=== PATIENT | female | born 1955 | race Caucasian/White ===

== ENCOUNTER → 2017-06-21 15:48 | Outpatient (CLI) | payer BC, SELFPAY ==
--- NOTE | 2017-06-21 15:51 | HPBI_ITS ---
MAMMOGRAPHY - BILATERAL SCREENING REASON FOR EXAM: Female, 61 years old. Routine annual screening examination. PERTINENT HISTORY: Non-contributory. TECHNIQUE: Digital bilateral breast trung (3D mammographic acquisition) in the CC and MLO projections. 2-D mediolateral oblique (MLO) and craniocaudad (CC) views of both breasts were obtained. CAD: Full Field Digital Mammography with Computer Added Detection was performed. COMPARISON: Comparison is made with prior study dated March 24, 2016 and December 27, 2012. FINDINGS: Breast Composition: There are scattered areas of fibroglandular density. There are no dominant masses or suspicious calcifications. Stable benign-appearing bilateral axillary lymph nodes. No other significant abnormalities are identified. There has been no significant change since the prior study. HPBI/SCREENING MAMM (CAD), BILAT IMPRESSION: Stable bilateral screening mammogram. Yearly follow-up mammogram recommended. (A) ASSESSMENT CATEGORY: BIRADS Category 2: Benign. A letter regarding these results will be sent to the patient by the facility within 30 days. Approximately 10% of breast cancers are not detected by mammography. A normal mammogram should not delay biopsy of a clinically suspicious abnormality. [id number] Electronically Signed: Steve Valenzuela MD at 8:59 EST Tel [phone], Service support ,
== END ==
PROVIDERS: Family Provider Family Medicine; PCP Family Medicine; Visit Provider Family Medicine
DX: Z12.31 Encounter for screening mammogram for malignant neoplasm of breast (principal)
CPT/HCPCS: 77063; 77067

== ENCOUNTER → 2017-08-20 10:35 | Outpatient (CLI) | payer BC, SELFPAY ==
[2017-08-20 12:21] LABS: Basophil# 0.02 X10^3/uL; Basophil% 0.3 % (0-1); Eosinophil# 0.09 X10^3/uL; Eosinophils% 1.5 % (0-5); Hematocrit 41.1 % (37-47); Hemoglobin 13.3 g/dl (12.0-15.0); Lymphocyte % 25.1 % (19-41); Mean Corp Hgb Conc 32.4 g/gl (32-36); Mean Corpuscular Hgb 28.6 pg (27.0-32.0); Mean Corpuscular Volume 88.4 fL (81-99); Mean Platelet Vol. 10.8 fl (6.2-12.0); Monocyte# 0.39 X10^3/uL; Monocyte% 6.5 % (0-10); Neutrophil # 3.97 X10^3/uL (2.7-7.7); Neutrophil % 66.4 % (47-70); Platelet Count 228 K/mm3 (150-450); RBC Distribution Width CV 13.2 % (11.6-14.6); RBC Distribution Width SD 42.6 fl (35.1-43.9); Red Blood Count 4.65 M/mm3 (4.2-5.4)
[2017-08-20 12:29] LABS: POSITIVE COUNT NO; POSITIVE DIFFERENTIAL NO; POSITIVE MORPHOLOGY NO
[2017-08-20 12:32] LABS: Hemoglobin A1c 9.7 % (4.2-6.3)
[2017-08-20 12:42] LABS: AST(SGOT) 13 U/L (15-37); Alanine Aminotransfer ALT/SGPT 23 U/L (13-56); Albumin, Serum 3.6 g/dL (3.2-5.0); Alkaline Phosphatase 93 U/L (45-117); Anion Gap 9 (5-15); BUN 12 mg/dL (7-18); BUN/Creat Ratio 12.6 RATIO (10-20); Calcium,Total 8.7 mg/dL (8.5-10.1); Chloride 105 mmol/L (98-107); Cholesterol 141 mg/dL (200); Creatinine, Serum 0.95 mg/dL (0.55-1.02); EST Glomerular Filtration Rate 63 mL/min (>60); Est Glom Filt Rate - Afr Amer 77 mL/min (>60); Globulin 3.7 g/dL (2.2-4.2); Glucose 207 mg/dL (74-106); High Density Lipoprotein 58 mg/dL; Potassium 3.7 mmol/L (3.5-5.1); Protein, Total 7.3 g/dL (6.4-8.2); Sodium Level 137 mmol/L (136-145); Thyroid Stim Hormone (TSH) 6.73 uIU/mL (0.358-3.74); Triglycerides 135 mg/dL; Very Low Density Lipoprotein 27 mg/dL (5-40)
[2017-08-20 12:45] LABS: Microalbumin,Random Urine 19.5 mg/L (NO RANGE EST.)
== END ==
PROVIDERS: Family Provider Family Medicine; PCP Family Medicine; Visit Provider Family Medicine
DX: I10 Essential (primary) hypertension (principal); E11.9 Type 2 diabetes mellitus without complications; E78.5 Hyperlipidemia, unspecified; E03.9 Hypothyroidism, unspecified; E66.9 Obesity, unspecified
CPT/HCPCS: 36415; 80053; 80061; 82043; 82570; 83036; 84443; 85025

== ENCOUNTER → 2018-06-04 10:26 | Outpatient (CLI) | payer BC, SELFPAY ==
[2018-06-04 12:10] LABS: Absolute Lymphocyte Count 1.72 X10^3/ul (0.83-4.51); Absolute Neutrophil Count 3.2 X10^3/uL (2.0-7.7); Basophil# 0.03 X10^3/uL; Basophil% 0.6 % (0-1); Eosinophil# 0.14 X10^3/uL; Eosinophils% 2.6 % (0-5); Hematocrit 38.5 % (37-47); Hemoglobin 12.1 g/dl (12.0-15.0); Lymphocyte # 1.72 X10^3/ul (4.0); Lymphocyte % 31.6 % (19-41); Mean Corp Hgb Conc 31.4 g/gl (32-36); Mean Corpuscular Hgb 27.5 pg (27.0-32.0); Mean Corpuscular Volume 87.5 fL (81-99); Mean Platelet Vol. 10.5 fl (6.2-12.0); Monocyte# 0.37 X10^3/uL; Monocyte% 6.8 % (0-10); Neutrophil # 3.18 X10^3/uL (2.7-7.7); Neutrophil % 58.2 % (47-70); Platelet Count 237 K/mm3 (150-450); RBC Distribution Width CV 13.7 % (11.6-14.6); RBC Distribution Width SD 44.4 fl (35.1-43.9); White Blood Count 5.5 K/mm3 (4.4-11.0)
[2018-06-04 12:14] LABS: POSITIVE COUNT NO; POSITIVE DIFFERENTIAL NO; POSITIVE MORPHOLOGY NO
[2018-06-04 12:24] LABS: Microalbumin,Random Urine 31.2 mg/L (NO RANGE EST.); Microalbumin:Creatinine Ratio 23.6 mg/g CRE (<30 mg/g CRE)
[2018-06-04 13:16] LABS: ALB/GLOB Ratio 0.9 RATIO (0.9-2.4); AST(SGOT) 11 U/L (15-37); Alanine Aminotransfer ALT/SGPT 28 U/L (13-56); Albumin, Serum 3.3 g/dL (3.2-5.0); Alkaline Phosphatase 76 U/L (45-117); Anion Gap 8 (5-15); BUN 13 mg/dL (7-18); BUN/Creat Ratio 19.8 RATIO (10-20); Calcium,Total 8.4 mg/dL (8.5-10.1); Chloride 109 mmol/L (98-107); Cholesterol 155 mg/dL (200); Creatinine, Serum 0.66 mg/dL (0.55-1.02); EST Glomerular Filtration Rate 97 mL/min (>60); Est Glom Filt Rate - Afr Amer 117 mL/min (>60); Globulin 3.6 g/dL (2.2-4.2); Glucose 152 mg/dL (74-106); High Density Lipoprotein 68 mg/dL; Potassium 3.9 mmol/L (3.5-5.1); Protein, Total 6.9 g/dL (6.4-8.2); Sodium Level 144 mmol/L (136-145); T4 Free Direct 1.03 ng/dL (0.76-1.46); Thyroid Stim Hormone (TSH) 0.73 uIU/mL (0.358-3.74); Triglycerides 121 mg/dL; Very Low Density Lipoprotein 24 mg/dL (5-40)
== END ==
LOC: LAB.FUTURE 04-14 12:08 → BFHLAB 09-11 10:50
PROVIDERS: Family Provider Family Medicine; PCP Family Medicine; Visit Provider Family Medicine
DX: Z00.00 Encounter for general adult medical examination without abnormal findings (principal); E11.9 Type 2 diabetes mellitus without complications; I10 Essential (primary) hypertension; E78.5 Hyperlipidemia, unspecified; E03.9 Hypothyroidism, unspecified
CPT/HCPCS: 36415; 80053; 80061; 82043; 82570; 83036; 84439; 84443; 85025

== ENCOUNTER → 2018-06-25 14:55 | Outpatient (CLI) | payer BC, SELFPAY ==
--- NOTE | 2018-06-25 15:02 | CT_ITS ---
STUDY: CT CHEST/THORAX WITHOUT CONTRAST REASON FOR EXAM: Female, 62 years old. Lung screening. 40 pack-year smoking history quit one year ago. RADIATION DOSAGE (If Supplied By Facility): CTDIvol = ( 4.02 ) mGy, DLP = ( 139.44 ) mGycm TECHNIQUE: Transaxial imaging was performed utilizing low dose technique without the administration of intravenous contrast material. Multiplanar coronal and sagittal images were reformatted. Individualized dose optimization techniques were used for this CT. COMPARISON: None. FINDINGS: There is minor curvilinear scarring in the inferolateral lingula of the left upper lobe. No demonstrated pulmonary mass. There is no demonstrated pleural abnormality. Normal heart and pericardium. There are a few upper normal size to borderline enlarged pretracheal/precarinal lymph nodes. Normal hilar regions. Normal unenhanced pulmonary arteries. Normal aorta arch and descending thoracic aorta. There are multi-level degenerative changes of the thoracic spine. There is no demonstrated abnormality of the visualized upper abdomen. CT/Chest without Contrast IMPRESSION: 1. Focal scarring in the inferolateral lingula of left upper lobe. 2. There are a few upper normal-sized to borderline enlarged pretracheal/precarinal lymph nodes. Electronically Signed: Gregory Perry, at 17:36 EST , Service support ,
== END ==
PROVIDERS: Family Provider Family Medicine; PCP Family Medicine; Referring Provider Family Medicine; Visit Provider Family Medicine
DX: Z12.2 Encounter for screening for malignant neoplasm of respiratory organs (principal); Z87.891 Personal history of nicotine dependence
CPT/HCPCS: 71250

== ENCOUNTER → 2018-07-18 16:54 | Outpatient (CLI) | payer BC, SELFPAY ==
--- NOTE | 2018-07-18 16:56 | BI_ITS ---
MAMMOGRAPHY - BILATERAL SCREENING 3-D CHRISTIANA SYNTHESIS REASON FOR EXAM: Female, 62 years old. Bilateral Screening 3-D tomosynthesis PERTINENT HISTORY: No significant family history. TECHNIQUE: 2-D mammograms and 3-D Christiana synthesis of the breast (s) were performed. CAD was performed. COMPARISON: June 21, 2017, March 24, 2016 FINDINGS: The breast composition is almost entirely fat. Scattered benign calcifications are stable. There are stable normal-appearing lymph nodes in both axillae. No dense spiculated masses or suspicious microcalcifications are identified. No architectural distortion is identified. There is no skin thickening or retraction. There has been no significant change since the prior study. BI/SCREENING MAMM (CAD), BILAT IMPRESSION: No mammographic signs of malignancy. Routine yearly mammograms recommended. ASSESSMENT CATEGORY: BIRADS Category 2: Benign. A letter regarding these results will be sent to the patient by the facility within 30 days. FOLLOW UP RECOMMENDATION: Yearly follow up mammogram recommended. (A) Approximately 10% of breast cancers are not detected by mammography. A normal mammogram should not delay biopsy of a clinically suspicious abnormality. Electronically Signed: Jg Fowler MD at 17:04 EDT , Service support ,
== END ==
PROVIDERS: Family Provider Family Medicine; PCP Family Medicine; Referring Provider Family Medicine; Visit Provider Family Medicine
DX: Z12.31 Encounter for screening mammogram for malignant neoplasm of breast (principal)
CPT/HCPCS: 77063; 77067

== ENCOUNTER → 2019-09-08 15:28 | Outpatient (CLI) | payer BC, SELFPAY ==
[2019-09-08 16:40] LABS: Absolute Lymphocyte Count 1.39 X10^3/uL (0.83-4.51); Absolute Neutrophil Count 4.5 X10^3/uL (2.0-7.7); Basophil# 0.05 X10^3/uL; Basophil% 0.8 % (0-1); Eosinophil# 0.13 X10^3/uL; Hematocrit 39.9 % (37-47); Hemoglobin 12.6 g/dL (12.0-15.0); Lymphocyte # 1.39 X10^3/ul (4.0); Lymphocyte % 21.5 % (19-41); Mean Corp Hgb Conc 31.6 g/dL (32-36); Mean Corpuscular Hgb 27.5 pg (27.0-32.0); Mean Corpuscular Volume 86.9 fL (81-99); Mean Platelet Vol. 10.6 fl (6.2-12.0); Monocyte# 0.41 X10^3/uL; Monocyte% 6.3 % (0-10); NRBC Flagged by Analyzer 0 % (0-5); Neutrophil # 4.48 X10^3/uL (2.7-7.7); Neutrophil % 69.2 % (47-70); Platelet Count 254 K/mm3 (150-450); RBC Distribution Width CV 13.2 % (11.6-14.6); RBC Distribution Width SD 41.1 fl (35.1-43.9); Red Blood Count 4.59 M/mm3 (4.2-5.4); White Blood Count 6.5 K/mm3 (4.4-11.0)
[2019-09-08 17:03] LABS: ALB/GLOB Ratio 0.9 RATIO (0.9-2.4); AST(SGOT) 17 U/L (15-37); Alanine Aminotransfer ALT/SGPT 26 U/L (13-56); Albumin, Serum 3.5 g/dL (3.2-5.0); Alkaline Phosphatase 80 U/L (45-117); Anion Gap 6 (5-15); BUN 15 mg/dL (7-18); BUN/Creat Ratio 20.4 RATIO (10-20); Calcium,Total 8.3 mg/dL (8.5-10.1); Chloride 111 mmol/L (98-107); Cholesterol 171 mg/dL (200); Creatinine, Serum 0.74 mg/dL (0.55-1.02); EST Glomerular Filtration Rate 85 mL/min (>60); Est Glom Filt Rate - Afr Amer 102 mL/min (>60); Globulin 3.7 g/dL (2.2-4.2); Glucose 116 mg/dL (74-106); High Density Lipoprotein 75 mg/dL; Protein, Total 7.2 g/dL (6.4-8.2); Sodium Level 140 mmol/L (136-145); T4 Free Direct 1.21 ng/dL (0.76-1.46); Thyroid Stim Hormone (TSH) 0.13 uIU/mL (0.358-3.74); Triglycerides 148 mg/dL; Very Low Density Lipoprotein 30 mg/dL (5-40)
[2019-09-08 17:16] LABS: Hemoglobin A1c 7.2 % (4.2-6.3)
[2019-09-08 17:17] LABS: Microalbumin:Creatinine Ratio 14.9 mg/g CRE (<30 mg/g CRE)
[2019-09-11 03:39] LABS: SAR-COV-2 IGG ANTIBODY Negative (Negative); SAR-COV-2 IGM ANTIBODY Negative (Negative)
== END ==
PROVIDERS: Family Provider Family Medicine; PCP Family Medicine; Visit Provider Family Medicine
DX: Z00.00 Encounter for general adult medical examination without abnormal findings (principal); E11.9 Type 2 diabetes mellitus without complications; E03.9 Hypothyroidism, unspecified
CPT/HCPCS: 36415; 80053; 80061; 82043; 82570; 83036; 84439; 84443; 85025; 86769

== ENCOUNTER → 2020-03-05 14:09 | Outpatient (CLI) | payer BC, SELFPAY ==
[2020-03-05 17:14] LABS: Hemoglobin A1c 6.7 % (3.8-5.6)
[2020-03-05 18:11] LABS: Cholesterol 166 mg/dL (200); High Density Lipoprotein 81 mg/dL; Thyroid Stim Hormone (TSH) 1.14 uIU/mL (0.358-3.74); Triglycerides 128 mg/dL; Very Low Density Lipoprotein 26 mg/dL (5-40)
[2020-03-06 10:44] LABS: Hepatitis C Antibody Non-Reactive (Nonreactive)
== END ==
PROVIDERS: PCP Family Medicine; Visit Provider Family Medicine
DX: E11.9 Type 2 diabetes mellitus without complications (principal); E78.5 Hyperlipidemia, unspecified; E03.9 Hypothyroidism, unspecified; R53.83 Other fatigue
CPT/HCPCS: 36415; 80061; 83036; 84439; 84443; 86803

== ENCOUNTER → 2020-04-27 17:30 | Outpatient (CLI) | payer BC, SELFPAY ==
--- NOTE | 2020-04-27 16:45 | BI_ITS ---
MAMMOGRAPHY - BILATERAL SCREENING REASON FOR EXAM: Female, 64 years old. Routine annual screening examination. PERTINENT HISTORY: Non-contributory. TECHNIQUE: Digital bilateral breast christiana (3D mammographic acquisition) in the CC and MLO projections. 2-D mediolateral oblique (MLO) and craniocaudad (CC) views of both breasts were obtained. CAD: Full Field Digital Mammography with Computer Added Detection was performed. COMPARISON: 07/18/2018 and 06/21/2017 FINDINGS: Breast Composition: There are scattered areas of fibroglandular density. There are no dominant masses or suspicious calcifications. No other significant abnormalities are identified. BI/SCREEN MAMM (CAD) W/CHRISTIANA BILAT IMPRESSION: Stable bilateral screening mammogram. Yearly follow-up mammogram recommended. (A) ASSESSMENT CATEGORY: BIRADS Category 2: Benign. A letter regarding these results will be sent to the patient by the facility within 30 days. Approximately 10% of breast cancers are not detected by mammography. A normal mammogram should not delay biopsy of a clinically suspicious abnormality. [id number] Electronically Signed: Ragini Taylor, at 15:32 EST Tel , Service support ,
== END ==
PROVIDERS: PCP Family Medicine
DX: Z12.31 Encounter for screening mammogram for malignant neoplasm of breast (principal)
CPT/HCPCS: 77063; 77067

== ENCOUNTER → 2021-12-09 | Outpatient (CLI) | payer BC, SELFPAY ==
--- NOTE | 2021-12-09 07:46 | BI_ITS ---
MAMMOGRAPHY - BILATERAL SCREENING REASON FOR EXAM: Female, 65 years old. Routine annual screening examination. PERTINENT HISTORY: Non-contributory. TECHNIQUE: Digital bilateral breast christiana (3D mammographic acquisition) in the CC and MLO projections. 2-D mediolateral oblique (MLO) and craniocaudad (CC) views of both breasts were obtained. CAD: Full Field Digital Mammography with Computer Added Detection was performed. COMPARISON: Screening mammogram from 04/27/2020, 07/18/2018, 06/21/2017. FINDINGS: Breast Composition: There are scattered areas of fibroglandular density. There are no dominant masses or suspicious calcifications. Stable benign-appearing axillary lymph nodes. No other significant abnormalities are identified. There has been no significant change since the prior study. BI/SCRN MAMM (CAD)W/CHRISTIANA BILAT IMPRESSION: Stable bilateral screening mammogram. Yearly follow-up mammogram recommended. (A) ASSESSMENT CATEGORY: BIRADS Category 2: Benign. A letter regarding these results will be sent to the patient by the facility within 30 days. Approximately 10% of breast cancers are not detected by mammography. A normal mammogram should not delay biopsy of a clinically suspicious abnormality. Electronically Signed: Randal Mccain, at 10:58 EDT ,
== END | disposition home or self-care (01) ==
LOC: OPBI 07:43
PROVIDERS: PCP Family Medicine; Referring Provider Family Medicine; Visit Provider Family Medicine
DX: Z12.31 Encounter for screening mammogram for malignant neoplasm of breast (principal)
CPT/HCPCS: 77063; 77067

== ENCOUNTER → 2022-01-24 | Outpatient (CLI) | payer BC, SELFPAY ==
--- NOTE | 2022-01-24 11:21 | RAD_ITS ---
STUDY: X-RAY - LEFT KNEE REASON FOR EXAM: Female, 66 years old. Left knee pain. TECHNIQUE: 5 view(s) of the knee. COMPARISON: None. FINDINGS: Marked osteopenia. Superior patellar spur. Marked tricompartmental arthrosis most prominent in the medial and patellofemoral compartments. Ossific fragments projected posteriorly compatible with intra-articular osteochondral bodies. The soft tissue structures are unremarkable. RAD/Knee 4 or More Views IMPRESSION: Osteopenia with patellar spur and tricompartmental arthrosis as described. No acute abnormality, chondrocalcinosis or erosive changes. Electronically Signed: Jg Fowler, at 13:15 EDT ,
--- NOTE | 2022-01-24 11:21 | RAD_ITS ---
STUDY: X-RAY - RIGHT KNEE REASON FOR EXAM: Female, 66 years old. Bilateral knee pain. TECHNIQUE: 5 view(s) of the knee. COMPARISON: None. FINDINGS: Osteopenia. Superior patellar spur. Moderate to marked tricompartmental arthrosis, most evident in the medial and patellofemoral compartments, with osteophyte formation. Small joint effusion. RAD/Knee 4 or More Views IMPRESSION: Osteopenia, tricompartmental arthrosis, as described, and small joint effusion. Electronically Signed: Jg Fowler, at 14:05 EDT ,
== END | disposition home or self-care (01) ==
LOC: RAD 11:17
PROVIDERS: PCP Family Medicine; Referring Provider Family Medicine; Visit Provider Family Medicine
DX: M25.562 Pain in left knee (principal); M25.561 Pain in right knee
CPT/HCPCS: 73564

== ENCOUNTER → 2023-03-27 | Outpatient (CLI) | payer MEDICARE, BC, SELFPAY ==
[2023-03-27 17:41] LABS: Absolute Lymphocyte Count 1.24 X10^3/uL (0.83-4.51); Absolute Neutrophil Count 5.2 X10^3/uL (2.0-7.7); Basophil# 0.05 X10^3/uL; Basophil% 0.7 % (0-1); Eosinophil# 0.09 X10^3/uL; Eosinophils% 1.3 % (0-5); Lymphocyte # 1.24 X10^3/ul (0.83-4.51); Lymphocyte % 17.6 % (19-41); Mean Corpuscular Hgb 27.7 pg (27.0-32.0); Mean Corpuscular Volume 89.4 fL (81-99); Mean Platelet Vol. 10.7 fl (6.2-12.0); Monocyte# 0.46 X10^3/uL; Monocyte% 6.5 % (0-10); NRBC Flagged by Analyzer 0 % (0-5); Neutrophil # 5.17 X10^3/uL (2.7-7.7); Neutrophil % 73.6 % (47-70); Platelet Count 275 K/mm3 (150-450); RBC Distribution Width CV 13.3 % (11.6-14.6); RBC Distribution Width SD 43.9 fl (35.1-43.9)
[2023-03-27 17:46] LABS: Prothrombin Time (Protime)PT. 12.7 SECONDS (11.7-14.9)
[2023-03-27 18:12] LABS: Hemoglobin A1c 6.1 % (3.8-5.6)
[2023-03-27 18:29] LABS: ALB/GLOB Ratio 0.9 RATIO (0.9-2.4); AST(SGOT) 13 U/L (15-37); Alanine Aminotransfer ALT/SGPT 21 U/L (13-56); Albumin, Serum 3.6 g/dL (3.2-5.0); Alkaline Phosphatase 74 U/L (45-117); Anion Gap 9 (5-15); BUN 12 mg/dL (7-18); BUN/Creat Ratio 17.6 RATIO (10-20); Calcium,Total 8.5 mg/dL (8.5-10.1); Chloride 108 mmol/L (98-107); Cholesterol 163 mg/dL (200); Creatinine, Serum 0.68 mg/dL (0.55-1.02); EST Glomerular Filtration Rate 92 mL/min (>60); Est Glom Filt Rate - Afr Amer 111 mL/min (>60); Globulin 3.8 g/dL (2.2-4.2); Glucose 97 mg/dL (74-106); High Density Lipoprotein 90 mg/dL; Potassium 3.9 mmol/L (3.5-5.1); Protein, Total 7.4 g/dL (6.4-8.2); Sodium Level 141 mmol/L (136-145); Thyroid Stim Hormone (TSH) 7.73 uIU/mL (0.358-3.74); Triglycerides 101 mg/dL; Very Low Density Lipoprotein 20 mg/dL (5-40)
[2023-03-27 18:42] LABS: Microalbumin,Random Urine 24.3 mg/L (NO RANGE EST.); Microalbumin:Creatinine Ratio 15.3 mg/g CRE (<30 mg/g CRE)
== END | disposition home or self-care (01) ==
PROVIDERS: PCP Family Medicine; Visit Provider Family Medicine
DX: I10 Essential (primary) hypertension (principal); E11.9 Type 2 diabetes mellitus without complications; E78.5 Hyperlipidemia, unspecified; E03.9 Hypothyroidism, unspecified; R23.3 Spontaneous ecchymoses
CPT/HCPCS: 36415; 80053; 80061; 82043; 82570; 83036; 84443; 85025; 85610; 85730

== ENCOUNTER → 2024-04-01 | Outpatient (CLI) | payer MEDICARE, BC, SELFPAY ==
[2024-04-01 15:17] LABS: Absolute Lymphocyte Count 1.42 X10^3/uL (0.83-4.51); Basophil# 0.06 X10^3/uL; Eosinophil# 0.13 X10^3/uL; Eosinophils% 2.1 % (0-5); Hematocrit 43.9 % (37-47); Hemoglobin 13.5 g/dL (12.0-15.0); Lymphocyte # 1.42 X10^3/ul (0.83-4.51); Mean Corp Hgb Conc 30.8 g/dL (32-36); Mean Corpuscular Volume 87.8 fL (81-99); Mean Platelet Vol. 10.6 fl (6.2-12.0); Monocyte# 0.56 X10^3/uL; Monocyte% 9.1 % (0-10); NRBC Flagged by Analyzer 0 % (0-5); Neutrophil # 3.98 X10^3/uL (2.7-7.7); Neutrophil % 64.5 % (47-70); Platelet Count 260 K/mm3 (150-450); RBC Distribution Width CV 13.5 % (11.6-14.6); RBC Distribution Width SD 43.4 fl (35.1-43.9); White Blood Count 6.2 K/mm3 (4.4-11.0)
[2024-04-01 16:04] LABS: Hemoglobin A1c 6.5 % (3.8-5.6)
[2024-04-01 16:05] LABS: Microalbumin,Random Urine 14.4 mg/L (NO RANGE EST.); Microalbumin:Creatinine Ratio 10.8 mg/g CRE (<30 mg/g CRE)
[2024-04-01 16:09] LABS: AST(SGOT) 13 U/L (15-37); Alanine Aminotransfer ALT/SGPT 28 U/L (13-56); Albumin, Serum 3.5 g/dL (3.2-5.0); Alkaline Phosphatase 82 U/L (45-117); Anion Gap 5 (5-15); BUN 17 mg/dL (7-18); BUN/Creat Ratio 18.6 RATIO (10-20); Calcium,Total 9.3 mg/dL (8.5-10.1); Chloride 113 mmol/L (98-107); Cholesterol 163 mg/dL (200); Creatinine, Serum 0.92 mg/dL (0.55-1.02); EST Glomerular Filtration Rate 65 mL/min (>60); Est Glom Filt Rate - Afr Amer 78 mL/min (>60); Globulin 3.6 g/dL (2.2-4.2); Glucose 132 mg/dL (74-106); High Density Lipoprotein 79 mg/dL; Potassium 4.4 mmol/L (3.5-5.1); Protein, Total 7.1 g/dL (6.4-8.2); Sodium Level 142 mmol/L (136-145); Thyroid Stim Hormone (TSH) 0.259 uIU/mL (0.358-3.740); Triglycerides 130 mg/dL; Very Low Density Lipoprotein 26 mg/dL (5-40)
== END | disposition home or self-care (01) ==
LOC: BFHLAB 13:20
PROVIDERS: PCP Family Medicine; Referring Provider Family Medicine; Visit Provider Family Medicine
DX: E11.9 Type 2 diabetes mellitus without complications (principal); I10 Essential (primary) hypertension; E78.5 Hyperlipidemia, unspecified; E03.9 Hypothyroidism, unspecified
CPT/HCPCS: 36415; 80053; 80061; 82043; 82570; 83036; 84443; 85025

== ENCOUNTER 2024-07-07 05:55 | Day surgery (SDC) | payer MEDICARE, SELFPAY ==
[2024-07-07] VITALS (8 sets, daily range): BP systolic 93–142; BP diastolic 68–76; PULSE 62–71; RESP 16–18; TEMP 36.2–36.3; O2SAT 97–99; BMI 43.5
--- NOTE | 2024-07-07 06:41 | PCM.PRE.AN2 ---
ASA Classification* ASA Classification ASA Classification: 3 Assessment & Plan Anesthesia* Anesthesia Assessment Anesthesia Assessment: Discussed sedation and/or anesthesia options, risks, benefits, and alternatives with patient/parents/legal guardian/POA. Questions invited. The patient/parents/legal guardian/POA seems to understand and agrees to proceed with anesthesia plan. Reviewed the physical assessment, medical history, allergy history and patient home medications list prior to surgery/procedure/anesthetic and documented any changes. Performed airway and anesthesia risk assessments. Anesthesia Type Anesthesia Type: MAC Anesthesia Focused Assessment* Temperature: 97.4 F Pulse Rate: 71 Blood Pressure: 111/75 Respiratory Rate: 16 Pulse Ox: 98 Airway Assessment Mouth opens: >3 cm Mallampati Score: II Focused Labs Anesthesia Preop lab: CBC WBC 6.2 K/mm3 (4.4-11.0) 04/01/24 13:20 04/01/24 RBC 5.00 M/mm3 (4.2-5.4) 04/01/24 13:20 04/01/24 Hgb 13.5 g/dL (12.0-15.0) 04/01/24 13:20 04/01/24 Hct 43.9 % (37-47) 04/01/24 13:20 04/01/24 Plt Count 260 K/mm3 (150-450) 04/01/24 13:20 04/01/24 CHEMISTRY Potassium 4.4 mmol/L (3.5-5.1) 04/01/24 13:20 04/01/24 Sodium 142 mmol/L (136-145) 04/01/24 13:20 04/01/24 BUN 17 mg/dL (7-18) 04/01/24 13:20 04/01/24 Creatinine 0.92 mg/dL (0.55-1.02) 04/01/24 13:20 04/01/24 Glucose 132 mg/dL (74-106) H 04/01/24 13:20 04/01/24 TSH 0.259 uIU/mL (0.358-3.740) L 04/01/24 13:20 04/01/24 COAG PT 12.7 SECONDS (11.7-14.9) 03/27/23 14:55 03/27/23 Pre-Assessment Diagnosis/Proposed Procedure Planned Operative Procedure(s): COLONOSCOPY Anesthesia History Anesthesia History - licensing court magistrate: Anesthesia History - licensing court magistrate Hx Hospitalization No 07/04/24 15:37 Any Problems With Anesthesia No 07/04/24 15:37 Cholinesterase deficiency No 07/04/24 15:37 You/Your Family Experience No 07/04/24 15:37 fever (hyperthermia) with Relationship Recent Exposure to Contagious No 07/07/24 06:31 Disease Does patient have nerve No 07/04/24 15:37 stimulator Patient instructed to have device shut off --Does patient have Pacemaker No 07/07/24 06:31 or ICD? When Was Last Pacemaker Check QUESTION #4 FULL TEXT: You/Your Family Experience fever (hyperthermia) with Anesthesia Last Oral Intake Last Oral intake: Last Oral Intake NPO since 03:30 07/07/24 06:31 Meds taken in AM with sips of water? Meds patient instructed to take am of surgery PONV PONV - licensing court magistrate: PONV - licensing court magistrate Female Yes 07/04/24 15:37 HX of Motion Sickness No 07/04/24 15:37 HX of N/V After Surgery No 07/04/24 15:37 Non-Smoker Yes 07/04/24 15:37 Duration of Surgery greater No 07/04/24 15:37 than 60 minutes Number of Risk Factors 2 07/04/24 15:37 PONV Score Moderate Risk 07/04/24 15:37 Height & Weight Height & Weight: Anesthesia: Height & Weight Height 5 ft 2 in 07/07/24 06:31 Weight: 108 kg 07/07/24 06:31 Body Mass Index (BMI) 43.5 07/07/24 06:31 Respiratory Assessment Respiratory Assessment - licensing court magistrate: Respiratory Tract Infection Hx - licensing court magistrate Hx Respiratory Tract Infection No 07/04/24 15:37 STOP Sleep Apnea STOP Sleep Apnea - licensing court magistrate: STOP Sleep Apnea - licensing court magistrate Hx Hypertension Yes 07/04/24 15:37 Hx Sleep Apnea Yes 07/04/24 15:37 CPAP Yes 07/04/24 15:37 BIPAP No 07/04/24 15:37 Do you snore loudly (louder than talking or can be heard Do you often feel tired/ fatigued/ sleepy during daytime? Has anyone observed you stop breathing during sleep? STOP Results Positive 07/04/24 15:37 QUESTION #5 FULL TEXT : Do you snore loudly (louder than talking or can be heard through closed doors)? 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 Specify any problems Hx of Preganancy in last 3 No 07/04/24 15:37 Months Nurse Filling Out Transfusion VLEHMAN 07/04/24 15:37 & Questions: Date: 07/04/24 07/04/24 15:37 Time: 15:41 07/04/24 15:37 Patient unable to answer at this time (ie. 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 Hyperlipidemia Hypothyroid Hx of colonic polyp HTN (hypertension) Type 2 diabetes mellitus Home Medications ?Medication ?Instructions ?Recorded ?Last Taken ?Type atorvastatin 40 mg tablet 40 mg PO QDAY 06/04/24 07/06/24 History clotrimazole-betamethasone 1 1 applic topical BID PRN itching 06/04/24 Unknown History %-0.05 % topical cream fenofibrate nanocrystallized 48 mg 48 mg PO QDAY 06/04/24 07/06/24 History tablet insulin glargine 100 unit/mL (3 40 unit subcut QDAY 06/04/24 07/06/24 History mL) subcutaneous pen (Lantus Solostar U-100 Insulin) metformin 1,000 mg tablet 1,000 mg PO QDAY 06/04/24 07/06/24 History ramipril 5 mg capsule 5 mg PO QDAY 06/04/24 07/06/24 History topiramate 25 mg tablet 25 mg PO QDAY 06/04/24 07/06/24 History valacyclovir 1 gram tablet 2,000 mg PO BID PRN cold sores 06/04/24 07/06/24 History venlafaxine 150 mg 150 mg PO QDAY 06/04/24 07/06/24 History capsule,extended release 24 hr venlafaxine 37.5 mg 37.5 mg PO QDAY 06/04/24 07/06/24 History capsule,extended release 24 hr levothyroxine 125 mcg tablet 125 mcg PO DAILY 07/04/24 07/06/24 History Allergy/AdvReac Type Severity Reaction Status Date / Time acetaminophen (From Percocet) Allergy Vomiting Verified 07/07/24 06:28 oxycodone (From Percocet) Allergy Vomiting Verified 07/07/24 06:28 Family History Grandfather Colon cancer Father Cancer of kidney Surgical History Hx of cataract surgery Hx of section Hx of total hysterectomy Hx of colonoscopy Social History Smoking Status: Former smoker Review of Systems (Anesthesia) ROS Narrative System reviewed and no additional complaints, except as documented.
[2024-07-07 07:06] LABS: Bedside Glucose 104 mg/dL (74-106)
--- NOTE | 2024-07-07 07:16 | H&P.OPEN ---
[facility] - General General Date of Service: 07/07/24 HPI Narrative GERI DAVENPORT, is a 68 F who presents for a screening colonoscopy. Patient's last colonoscopy was 10+ years ago at [facility] history of polyps per patient?patient thinks she may have had polyps at that appointment unsure when she was told to return. Patient's paternal grandfather was diagnosed colon cancer greater than age 60. Patient has bowel movements daily denies any blood. Patient denies any chronic abdominal pain/nausea/vomiting/reflux. [facility], [facility] Medical History Wears dentures Wears glasses Depression Diabetes Thyroid disease Arthritis High cholesterol CPAP (continuous positive airway pressure) dependence Sleep apnea GEMA on CPAP Hyperlipidemia Hypothyroid Hx of colonic polyp HTN (hypertension) Type 2 diabetes mellitus Home Medications ?Medication ?Instructions ?Recorded ?Last Taken ?Type atorvastatin 40 mg tablet 40 mg PO QDAY 06/04/24 07/06/24 History clotrimazole-betamethasone 1 1 applic topical BID PRN itching 06/04/24 Unknown History %-0.05 % topical cream fenofibrate nanocrystallized 48 mg 48 mg PO QDAY 06/04/24 07/06/24 History tablet insulin glargine 100 unit/mL (3 40 unit subcut QDAY 06/04/24 07/06/24 History mL) subcutaneous pen (Lantus Solostar U-100 Insulin) metformin 1,000 mg tablet 1,000 mg PO QDAY 06/04/24 07/06/24 History ramipril 5 mg capsule 5 mg PO QDAY 06/04/24 07/06/24 History topiramate 25 mg tablet 25 mg PO QDAY 06/04/24 07/06/24 History valacyclovir 1 gram tablet 2,000 mg PO BID PRN cold sores 06/04/24 07/06/24 History venlafaxine 150 mg 150 mg PO QDAY 06/04/24 07/06/24 History capsule,extended release 24 hr venlafaxine 37.5 mg 37.5 mg PO QDAY 06/04/24 07/06/24 History capsule,extended release 24 hr levothyroxine 125 mcg tablet 125 mcg PO DAILY 07/04/24 07/06/24 History Allergy/AdvReac Type Severity Reaction Status Date / Time acetaminophen (From Percocet) Allergy Vomiting Verified 07/07/24 06:28 oxycodone (From Percocet) Allergy Vomiting Verified 07/07/24 06:28 Family History Grandfather Colon cancer Father Cancer of kidney Surgical History Hx of cataract surgery Hx of section Hx of total hysterectomy Hx of colonoscopy Social History Smoking Status: Former smoker Past Medical/Surgical History Planned Operation Planned Operative Procedure(s): COLONOSCOPY Previous Hospitalizations/Surgeries HX Hospitalizations: No Any Problems With Anesthesia: No You/Your Family Experience Fever (Hyperthermia) With Anes: No Cholinesterase deficiency: No Cardiovascular Hx Hypertension: Yes Respiratory Hx Sleep Apnea: Yes CPAP: Yes BIPAP: No Hx Respiratory Tract Infection/Cold (presently): No Result (for STOP score): Positive Smoking Status: Former smoker Neurological Does patient have nerve stimulator: No Reproduction : No Miscellaneous Recent Exposure to Contagious Disease: No Allergies acetaminophen (From Percocet) Allergy (Verified 07/07/24 06:28) Vomiting oxycodone (From Percocet) Allergy (Verified 07/07/24 06:28) Vomiting Discharge Is Pt Admitted From a [facility], or a Care Home: No Who Could Help: FRIEND After D/C, Where Do you Plan to Go: Return Home Vital Signs Vital Signs Vital Signs: 07/07/24 06:31 07/07/24 06:31 07/07/24 06:41 Temperature 97.4 F L 97.4 F L Temperature Source Temporal Pulse Rate 71 71 Respiratory Rate 16 16 Respiratory Pattern Normal Blood Pressure 111/75 111/75 Blood Pressure Mean 87 Blood Pressure Source Monitor Blood Pressure Position Semi-Fowlers Blood Pressure Location Right Arm Pulse Ox 98 98 Oxygen Delivery Method Room Air Weight Weight: 238 lb 1.588 oz Body Mass Index (BMI) 43.5 Physical Exam Const alert, oriented x3 and no apparent distress HEENT normocephalic and head/scalp atraumatic Resp normal respiratory effort Cardio regular rate GI soft to palpation and non-tender; Negative for non-distended Palpation: Negative for guarding Extremity no clubbing, cyanosis or edema Skin no rashes or lesions noted Neuro CN's II-XII intact bilaterally Psych mental status grossly normal Assessment & Plan Assessment/Plan (1) Encounter for screening for malignant neoplasm of colon: Surgery Risks - Colonoscopy I discussed with the patient the risks of the procedure: Yes Risks Include but are not Limited To: Risks include but are not limited to: Bleeding, perforation requiring further surgery, inability to complete colonoscopy requiring barium enema.
--- NOTE | 2024-07-07 07:30 | COLBX_PTH ---
PATIENT: GERI DAVENPORT LOC: EN U#:[id number] AGE/SX: 68/F ROOM: RE07/07/[address]: Dr. Katie Ash MD : 1955 BED: DIS: 07/07/2024 SPEC #: [id number] RECD: 07/07/24 12:28 STATUS: NORMAN REHung #: [id number] ALISHA: 07/07/24 07:[address]: Katie Ash DEPT: SURGICAL PATHOLOGY RECD BY: Shanta Lima ENTERED: 07/07/24 12:47 SP TYPE: COLON BX OTHR DR: Dr. Carlos Manuel Lozano, DO Tissues: A - Transverse colon B - Descending colon Procedures: Surgery Specimen Level IV HEADER OPERATION: Colonoscopy with polypectomy PRE-OP DIAGNOSIS: Screening TISSUE SUBMITTED: A- Transverse colon polyp biopsy, B- Descending polyp MICROSCOPIC DIAGNOSIS A: TRANSVERSE COLON POLYP, BIOPSY: * Tubular adenoma. B: DESCENDING COLON POLYP, BIOPSY: * Tubular adenoma. MICROSCOPIC DESCRIPTION Slides are reviewed. GROSS DESCRIPTION A. Received in fixative is one container labeled with the patient's name and designated Transverse colon polyp biopsy. The specimen consists of one irregular fragment of light leung soft tissue that measures 0.5 x 0.4 x 0.1 cm. The specimen is totally submitted in one cassette. B. Received in fixative is one container labeled with the patient's name and designated Descending polyp. The specimen consists of multiple irregular fragments of light leung soft tissue that in aggregate measure 1.2 x 0.5 x 0.3 cm. The specimen is totally submitted in one cassette. / 07/07/2024 CPT:16035d8
--- NOTE | 2024-07-07 08:07 | OP.COLON_ITS ---
Patient Name: Monique Arriola Procedure Date: 07/07/2024 7:15 AM Date of : 1955 Age: 68 Procedure: Colonoscopy Indications: Screening for colorectal malignant neoplasm Providers: Katie Ash MD Medicines: Monitored Anesthesia Care Patient Profile: This is a 68 year old female. Last Colonoscopy: more than 10 years ago. Complications: No immediate complications. Procedure: Pre-Anesthesia Assessment: - Prior to the procedure, a History and Physical was performed, and patient medications and allergies were reviewed. The patient's tolerance of previous anesthesia was also reviewed. The risks and benefits of the procedure and the sedation options and risks were discussed with the patient. All questions were answered, and informed consent was obtained. Prior Anticoagulants: The patient has taken no anticoagulant or antiplatelet agents. ASA Grade Assessment: Per anesthesia. After reviewing the risks and benefits, the patient was deemed in satisfactory condition to undergo the procedure. After I obtained informed consent, the scope was passed under direct vision. Throughout the procedure, the patient's blood pressure, pulse, and oxygen saturations were monitored continuously. The colonoscope was introduced through the anus and advanced to the cecum, identified by the appendiceal orifice, ileocecal valve and palpation. The colonoscopy was performed without difficulty. The patient tolerated the procedure well. The quality of the bowel preparation was good. Scope In: 7:31:29 AM Scope Withdrawal Time 0 hours 16 minutes 11 seconds Scope Out: 7:58:21 AM Total Procedure Duration Time 0 hours 26 minutes 52 seconds Findings: The perianal and digital rectal examinations were normal. A less than 5 mm polyp was found in the transverse colon. The polyp was sessile. The polyp was removed with a cold biopsy forceps. Resection and retrieval were complete. A less than 5 mm polyp was found in the descending colon. The polyp was semi-pedunculated. The polyp was removed with a hot snare. Resection and retrieval were complete. The exam was otherwise without abnormality on direct and retroflexion views. Impression: - One less than 5 mm polyp in the transverse colon, removed with a cold biopsy forceps. Resected and retrieved. - One less than 5 mm polyp in the descending colon, removed with a hot snare. Resected and retrieved. - The examination was otherwise normal on direct and retroflexion views. Recommendation: - Discharge patient to home. - Resume previous diet. - Continue present medications. - Await pathology results. - Repeat colonoscopy in 5 years for surveillance based on pathology results. Procedure Code(s): --- Professional --- 07291, PT, Colonoscopy, flexible; with removal of tumor(s), polyp(s), or other lesion(s) by snare technique 80995, 59, Colonoscopy, flexible; with biopsy, single or multiple Diagnosis Code(s): --- Professional --- Z12.11, Encounter for screening for malignant neoplasm of colon D12.3, Benign neoplasm of transverse colon (hepatic flexure or splenic flexure) D12.4, Benign neoplasm of descending colon CPT copyright 2021 [employer]. All rights reserved. The codes documented in this report are preliminary and upon retail zone specialist review may be revised to meet current compliance requirements. MD Katie Ford MD 07/07/2024 8:06:43 AM This report has been signed electronically. Number of Addenda: 0 Note Initiated On: 07/07/2024 7:15 AM
--- NOTE | 2024-07-07 08:07 | OP.CCLET_ITS ---
07/07/2024 Carlos Manuel Lozano [address] [place] [address] Re : Colonoscopy procedure for Monique Flako Dear Dr. Lozano This procedure was performed on Sunday, July 07, 2024. My impressions and recommendations are as follows: Impressions : - One less than 5 mm polyp in the transverse colon, removed with a cold biopsy forceps. Resected and retrieved. - One less than 5 mm polyp in the descending colon, removed with a hot snare. Resected and retrieved. - The examination was otherwise normal on direct and retroflexion views. Recommendations : - Discharge patient to home. - Resume previous diet. - Continue present medications. - Await pathology results. - Repeat colonoscopy in 5 years for surveillance based on pathology results. My findings are described in the full procedure note, which is enclosed. If I can be of further assistance, please feel free to contact me at Doctor phone number(s): , Work: . Sincerely, MD Katie Ford MD 07/07/2024 8:06:43 AM This report has been signed electronically.
--- NOTE | 2024-07-07 08:07 | PCM.POST.ANE ---
Anesthesia: Postop Eval I Current Vital Signs Temperature: 97.2 F Pulse Rate: 69 Blood Pressure: 137/75 Respiratory Rate: 18 Pulse Ox: 99 Oxygen Delivery Method: Room Air Assessment Airway patent: Yes Spontaneous unlabored respirations: Yes Mental status: Awake nausea: No Vomiting: No Anesthesia Complication: No Fluid Hydration Crystalloid volume administer (ml): 10 Total IV fluid infused: 10 Progress Note Anesthesia document: Postop Eval 1 completed: Yes
--- NOTE | 2024-07-07 09:06 | POSTOPAN2_ITS ---
Anesthesia Postop Eval I Sum Postop Eval Completion status Anesthesia document: Postop Eval 1 completed: Yes Anesthesia Postop Eval I Summary Anesthesia Postop Eval I Summary: Anesthesia Postop Eval I: Assessment Summary Airway patent Yes 07/07/24 08:08 [email or web address] Spontaneous unlabored Yes 07/07/24 08:08 CALL [email or web address] respirations Mental status Awake 07/07/24 08:08 CALL [email or web address] nausea No 07/07/24 08:08 CALL [email or web address] Vomiting No 07/07/24 08:08 CALL [email or web address] Anesthesia Postop Eval I: Fluid Summary Crystalloid volume administer 10 07/07/24 08:08 CALL [email or web address] (ml) Colloids volume administered ( ml) Blood Product volume administered (ml) Total IV fluid infused 10 07/07/24 08:08 CALL [email or web address] Anesthesia Postop Eval I: Summary Notes Anesthesia Complication No 07/07/24 08:08 CALL [email or web address] Anesthesia Complication Comment: Post-operative progress note Anesthesia: Postop Eval II Evaluation Mental status: Awake Pain Level: 0 nausea: No Vomiting: No
--- NOTE | 2024-07-07 09:06 | PCM.POSTANE2 ---
Anesthesia Postop Eval I Sum Postop Eval Completion status Anesthesia document: Postop Eval 1 completed: Yes Anesthesia Postop Eval I Summary Anesthesia Postop Eval I Summary: Anesthesia Postop Eval I: Assessment Summary Airway patent Yes 07/07/24 08:08 [email or web address] Spontaneous unlabored Yes 07/07/24 08:08 [email or web address] respirations Mental status Awake 07/07/24 08:08 [email or web address] nausea No 07/07/24 08:08 [email or web address] Vomiting No 07/07/24 08:08 [email or web address] Anesthesia Postop Eval I: Fluid Summary Crystalloid volume administer 10 07/07/24 08:08 [email or web address] (ml) Colloids volume administered ( ml) Blood Product volume administered (ml) Total IV fluid infused 10 07/07/24 08:08 [email or web address] Anesthesia Postop Eval I: Summary Notes Anesthesia Complication No 07/07/24 08:08 [email or web address] Anesthesia Complication Comment: Post-operative progress note Anesthesia: Postop Eval II Evaluation Mental status: Awake Pain Level: 0 nausea: No Vomiting: No
== END 2024-07-07 08:57 | disposition home or self-care (01) ==
LOC: EN 05:55 → AC 05:57
PROVIDERS: PCP Family Medicine; Referring Provider Family Medicine; Visit Provider Surgery
PROC: 0DJD8ZZ Inspection of Lower Intestinal Tract, Via Natural or Artificial Opening Endoscopic (ICD-10-PCS; CPT 45378; principal; 2024-07-07 07:25)
DX: Z12.11 Encounter for screening for malignant neoplasm of colon (principal); E11.9 Type 2 diabetes mellitus without complications; Z79.4 Long term (current) use of insulin; Z87.891 Personal history of nicotine dependence; D12.4 Benign neoplasm of descending colon; E78.00 Pure hypercholesterolemia, unspecified; I10 Essential (primary) hypertension; Z80.0 Family history of malignant neoplasm of digestive organs; Z86.0100 Personal history of colon polyps, unspecified; Z79.899 Other long term (current) drug therapy; Z79.84 Long term (current) use of oral hypoglycemic drugs; Z79.890 Hormone replacement therapy; E03.9 Hypothyroidism, unspecified; D12.3 Benign neoplasm of transverse colon
CPT/HCPCS: 45385; 45380; 82962; 88305; A4216; J2405

== ENCOUNTER → 2025-04-02 | Outpatient (CLI) | payer MEDICARE, SELFPAY ==
[2025-04-02 12:35] LABS: Hematocrit 43.1 % (37-47); Hemoglobin 13.7 g/dL (12.0-15.0); Immature Granulocytes Count 0.020 X10^3/uL (0.0-0.0); Mean Corp Hgb Conc 31.8 g/dL (32-36); Mean Corpuscular Volume 88.7 fL (81-99); Mean Platelet Vol. 10.4 fl (6.2-12.0); NRBC Flagged by Analyzer 0 % (0-5); Platelet Count 299 K/mm3 (150-450); RBC Distribution Width CV 12.9 % (11.6-14.6); RBC Distribution Width SD 41.9 fl (35.1-43.9); Red Blood Count 4.86 M/mm3 (4.2-5.4); White Blood Count 6.5 K/mm3 (4.4-11.0)
[2025-04-02 12:56] LABS: AST(SGOT) 23 U/L (<=31); Alanine Aminotransfer ALT/SGPT 20 U/L (<=34); Albumin, Serum 4.2 g/dL (3.4-4.8); Alkaline Phosphatase 88 U/L (35-104); Anion Gap 14 (5-15); BUN 13 mg/dL (4-19); BUN/Creat Ratio 14.7 RATIO (10-20); Calcium,Total 9.5 mg/dL (7.6-11.0); Carbon Dioxide 21.3 mmol/L (21.0-32.0); Chloride 103 mmol/L (98-108); Cholesterol 269 mg/dL (<=200); Globulin 3.1 g/dL (2.2-4.2); Glucose 197 mg/dL (70-99); Low Density Lipoprotein Calc. 157 mg/dL; Potassium 3.8 mmol/L (3.3-5.1); Triglycerides 215 mg/dL; Very Low Density Lipoprotein 43 mg/dL (5-40); cholesterol:hdl ratio screen 3.68
[2025-04-02 13:01] LABS: Creatinine, Urine (random) 218.00 mg/dL (28.00-217.00); Microalbumin,Random Urine 23.5 mg/L (<20 mg/L)
== END | disposition home or self-care (01) ==
LOC: BFHLAB 09:42
PROVIDERS: PCP Family Medicine; Visit Provider Family Medicine
DX: E11.9 Type 2 diabetes mellitus without complications (principal); I10 Essential (primary) hypertension; E78.5 Hyperlipidemia, unspecified; E03.9 Hypothyroidism, unspecified
CPT/HCPCS: 36415; 80053; 80061; 82043; 82570; 83036; 84439; 84443; 85025

== ENCOUNTER → 2025-04-28 | Outpatient (CLI) | payer MEDICARE, SELFPAY ==
--- NOTE | 2025-04-28 08:46 | AAAS_ITS ---
Reason For Study Reason For Study: SCREENING Aorta Measurements Aorta Doppler Measurements Proximal aorta measures1.71 x 1.66cm. in cross-sectional Peak systolic flow velocities within the proximal aorta axis. measure 81.4 cm/sec. Proximal aorta measures1.62cm. in longitudinal axis. Peak systolic flow velocities within the mid aorta measure Mid aorta measures1.69 x 1.64cm. in cross-sectional axis. 92.2 cm/sec. Mid aorta measures1.62cm. in longitudinal axis. Peak systolic flow velocities within the distal aorta Distal aorta measures1.78 x 1.63cm. in cross-sectional axis.measure 94.1 cm/sec. Distal aorta measures1.70cm. in longitudinal axis. Left Iliac Artery Left iliac artery measures 1.14 x 1.14 cm. in the cross-sectional axis. Left iliac artery measures 1.12 cm. in the longitudinal axis. Peak systolic velocity in the left iliac artery measures 81.4 cm/sec. Right Iliac Artery Right iliac artery measures 1.33 x 1.43 cm. in the cross-sectional axis. Right iliac artery measures 1.4 cm. in the longitudinal axis. Peak systolic velocity in the right iliac artery measures 83.2 cm/sec. Procedure Aorta IVC Iliac vasculature or bypass grafts [id number]. Patient was scanned in supine position during reflux assessment. Exam performed in department. VL/AAA Screening Interpretation Summary Aorta patent, normal caliber. Right iliac artery patent, ectasia to 1.43 cm Left iliac artery patent, normal caliber. Ordering Physician: Carlos Manuel Lozano Referring Physician: Carlos Manuel Lozano Performed By: Charmaine Conner, SIMRAN, RVT
== END | disposition home or self-care (01) ==
LOC: US 08:45
PROVIDERS: PCP Family Medicine; Referring Provider Family Medicine; Visit Provider Family Medicine
DX: Z13.6 Encounter for screening for cardiovascular disorders (principal); Z72.0 Tobacco use
CPT/HCPCS: 76706